=== PATIENT | female | born 1990 | race Caucasian/White ===

== ENCOUNTER 2018-10-24 01:48 | Observation (INO) | payer BC, MEDICAID, OTHER, SELFPAY ==
[~2018-10-24] VITALS: Ht 165.1 cm; Wt 100.0 kg
[2018-10-24] MEDS ORDERED: ONDANSETRON 2MG/ML, 2ML ONE (02:08)
[2018-10-24] MEDS ORDERED: HYDROmorphone 2 MG/ML, 1ML ONE ×2 (02:08→04:57)
[2018-10-24] MEDS: HYDROmorphone 2 MG/ML, 1ML IVPush PRN ×2 (02:13→05:01)
[2018-10-24] MEDS ORDERED: ONDANSETRON 2MG/ML, 2ML IVPush ONE (02:30)
[2018-10-24] MEDS ORDERED: SODIUM CHLORIDE FLUSH 10ML SYR IVF ONE ×2 (02:30→03:00)
[2018-10-24] MEDS ORDERED: CEFOTETAN PMX 1GM/50ML 50 ML ONE (02:39)
[2018-10-24 02:53] LABS: BASOPHILS # (AUTO) 0.05 x10^3/uL (0-0.1); BASOPHILS % (AUTO) 0 % (0-1); EOSINOPHILS # (AUTO) 0.14 x10^3/uL (0-0.4); EOSINOPHILS % (AUTO) 1 % (1-7); LYMPHOCYTES # (AUTO) 1.73 x10^3/uL (1-3.4); LYMPHOCYTES % (AUTO) 16 % (22-44); MD NO; MEAN CORPUSCULAR HEMOGLOBIN 29.3 pg (27.0-34.8); MEAN CORPUSCULAR HGB CONC 33.7 g/dL (32.4-35.8); MEAN CORPUSCULAR VOLUME 86.9 fL (80-100); MEAN PLATELET VOLUME 8.5 fL (7.4-10.4); MONOCYTES # (AUTO) 0.66 x10^3/uL (0.2-0.8); MONOCYTES % (AUTO) 6 % (2-9); NEUTROPHILS # (AUTO) 8.62 x10^3/uL (1.8-6.8); NEUTROPHILS % (AUTO) 77 % (42-75); PLATELET COUNT 310 x10^3/uL (130-400); RED BLOOD COUNT 4.61 x10^6/uL (3.82-5.3)
[2018-10-24] MEDS ORDERED: CEFOTETAN PMX 1GM/50ML 50 ML IV ONE (03:00)
[2018-10-24] MEDS ORDERED: SODIUM CHLORIDE 0.9% 1,000ML IVBOLUS ONE (03:00)
[2018-10-24 03:06] LABS: ALBUMIN 3.3 g/dL (3.4-5.0); ANION GAP 8 mmol/L (5-15); CALCIUM 8.5 mg/dL (8.5-10.1); CHLORIDE 108 mmol/L (98-107)
[2018-10-24 03:12] LABS: ALANINE AMINOTRANSFERASE 26 U/L (12-78); ALKALINE PHOSPHATASE 66 U/L (45-117); BILIRUBIN,TOTAL 0.4 mg/dL (0.2-1.0); CREATININE 0.77 mg/dL (0.55-1.02); TOTAL PROTEIN 7.4 g/dL (6.4-8.2)
[2018-10-24 04:40] VITALS: BP 144/97
[2018-10-24] MEDS ORDERED: SODIUM CHLORIDE 0.9% 1,000 ML IV ONE (04:49)
[2018-10-24] MEDS ORDERED: ONDANSETRON 2MG/ML, 2ML IVPush PRN ×2 (05:00→11:30)
[2018-10-24] MEDS ORDERED: HYDROmorphone 1 MG/ML, 1ML IVPush PRN (05:00)
[2018-10-24] MEDS ORDERED: SODIUM CHLORIDE FLUSH 10ML SYR IVF PRN (05:00)
[2018-10-24 07:07] VITALS: BP 121/76
[2018-10-24] MEDS ORDERED: SODIUM CHLORIDE 0.9% 1,000 ML IV SCH ×2 (09:00→09:05)
[2018-10-24] MEDS ORDERED: MIDAZOLAM 1 MG/ML, 2ML ONE (09:33)
[2018-10-24] MEDS ORDERED: FENTANYL PF 250 MCG/5ML ONE (09:34)
[2018-10-24 09:49] LABS: MICROSCOPIC AUTO
[2018-10-24 09:51] LABS: CULTURE INDICATED? NO
[2018-10-24] MEDS ORDERED: BUPIVACAINE/PF-EPI 0.5% 1:200K ONE (09:58)
[2018-10-24] MEDS ORDERED: SUGAMMADEX 200 MG/2 ML IVPush ONE (10:17)
[2018-10-24] MEDS ORDERED: FENTANYL PF 100 MCG/2ML IV PRN (11:00)
[2018-10-24] MEDS ORDERED: PROMETHAZINE 25 MG/ML, 1ML IV PRN (11:00)
[2018-10-24] MEDS ORDERED: HYDROmorphone 2 MG/ML, 1ML IVPush PRN (11:00)
[2018-10-24] MEDS ORDERED: hydrALAzine 20 MG/ML, 1ML IV PRN (11:00)
[2018-10-24] MEDS ORDERED: MEPERIDINE/PF 25MG/0.5ML IVPush PRN (11:00)
[2018-10-24] MEDS ORDERED: LABETALOL 5MG/ML, 20ML IV PRN (11:00)
[2018-10-24] MEDS ORDERED: ACETAMINOPHEN 325 MG TABLET PO PRN (11:00)
[2018-10-24] MEDS ORDERED: ALBUTEROL SULFATE 2.5 MG/3 ML NPPB PRN (11:00)
[2018-10-24] MEDS ORDERED: LORazepam 2 MG/ML, 1ML IVPush PRN (11:00)
[2018-10-24] MEDS ORDERED: OXYcodone 5 MG/5 ML ORAL.SOL UDC PO PRN ×2 (11:00→11:30)
[2018-10-24] MEDS ORDERED: MEPERIDINE/PF 50 MG/ML ONE (11:17)
[2018-10-24] MEDS ORDERED: LACTATED RINGERS 1,000 ML IV SCH (11:29)
[2018-10-24] MEDS ORDERED: morphine SULFATE 10 MG/ML, 1ML IVPush PRN (11:30)
[2018-10-24 14:07] VITALS: BP 112/75
[2018-10-24] MEDS ORDERED: KETOROLAC 30 MG/1 ML ONE (16:01)
[2018-10-24] MEDS ORDERED: CEFAZOLIN 1,000 MG ONE (16:01)
[2018-10-24] MEDS ORDERED: PROPOFOL 10 MG/ML, 20ML ONE (16:01)
[2018-10-24] MEDS ORDERED: SUCCINYLCHOLINE 20 MG/ML, 10ML ONE (16:01)
[2018-10-24] MEDS ORDERED: ROCURONIUM 10 MG/ML,10ML ONE (16:01)
[2018-10-24] MEDS ORDERED: DEXAMETHASONE 4 MG/ML, 1ML ONE (16:01)
[2018-10-24] MEDS ORDERED: OXYC5CAP2 PO (17:33)
[2018-10-24] MEDS ORDERED: ACET-76 PO (17:35)
[2018-10-24] MEDS ORDERED: IBUP-1222 PO (17:35)
== END 2018-10-24 18:52 | disposition home or self-care (01) ==
LOC: ED 03:28 → EDIP 03:29 → INTOOBSV 03:29 → ED 03:34 → 4NOR 04:15
PROVIDERS: ADMIT Surgery; ATTEND Surgery
DX: K80.00 Calculus of gallbladder with acute cholecystitis without obstruction (principal); F17.210 Nicotine dependence, cigarettes, uncomplicated; R11.2 Nausea with vomiting, unspecified
CPT/HCPCS: 36415; 47562; 76700; 80053; 81001; 83690; 84703; 85025; 88304; 96361; 96365; 96375; 96376; 99284; G0378; J0330; J0690; J1100; J1170; J1885; J2175; J2250; J2405; J2704; J3010; J3490; J7030

== ENCOUNTER 2019-10-10 19:37 | Emergency (ER) | payer MEDICAID ==
[~2019-10-10] VITALS: Ht 165.1 cm; Wt 110.9 kg
[~2019-10-10 19:37] MED LIST: ACET-76 PO; IBUP-1222 PO; OXYC5CAP2 PO
[2019-10-10 19:43] VITALS: BP 172/103
[2019-10-10] MEDS ORDERED: LIDOCAINE-MPF 1%, 5ML INFIL ONE (20:00)
[2019-10-10] MEDS ORDERED: LIDOCAINE-MPF 1%, 5ML ONE (20:05)
--- NOTE | 2019-10-10 20:11 | NUR ---
PT C/O REDNESS TO UPPER LEFT THIGH X3 DAYS. SITE IS RED AND WARM TO TOUCH. I&D SET UP FOR PROVIDER. LIDOCAINE PULLED FOR PROVIDER USE.
--- NOTE | 2019-10-10 21:00 | NUR ---
WOUND SITE DRESSED WITH CLEAN DRESSING. PT AWARE TO RETURN FOR RECHECK IN TWO DAYS.
== END 2019-10-10 21:02 | disposition home or self-care (01) ==
LOC: ED 20:45
DX: L02.416 Cutaneous abscess of left lower limb (principal); Z90.49 Acquired absence of other specified parts of digestive tract; Z98.51 Tubal ligation status; Z87.19 Personal history of other diseases of the digestive system
CPT/HCPCS: 10060; 99283

== ENCOUNTER 2019-12-18 20:00 | Emergency (ER) | payer MEDICAID ==
[~2019-12-18] VITALS: Ht 165.1 cm; Wt 111.0 kg
[2019-12-18 20:13] VITALS: BP 145/95
--- NOTE | 2019-12-18 20:23 | NUR ---
PT HERE WITH LEFT WRIST PAIN AFTER SLAMMING IT INTO A DOOR. STATES INCREASED PAIN AND SWELLING.
--- NOTE | 2019-12-18 21:19 | NUR ---
Patient/Caregiver given discharge instructions and they have confirmed that they understand the instructions. Patient ambulatory with steady gait.
== END 2019-12-18 21:30 | disposition home or self-care (01) ==
LOC: ED 21:00
DX: S63.522A Sprain of radiocarpal joint of left wrist, initial encounter (principal); S60.212A Contusion of left wrist, initial encounter; Z90.49 Acquired absence of other specified parts of digestive tract; X58.XXXA Exposure to other specified factors, initial encounter; Y93.89 Activity, other specified; Y92.009 Unspecified place in unspecified non-institutional (private) residence as the place of occurrence of the external cause; Y99.8 Other external cause status
CPT/HCPCS: 29125; 99283

== ENCOUNTER 2019-12-22 08:54 | Emergency (ER) | payer MEDICAID ==
[~2019-12-22] VITALS: Ht 162.6 cm; Wt 111.1 kg
[2019-12-22 09:03] VITALS: BP 164/95
--- NOTE | 2019-12-22 09:40 | NUR ---
LEFT WRIST ERYTHEMA. PT STATES PUS COMING OUT OF WOUND
[2019-12-22] MEDS ORDERED: LIDOCAINE 1%, 10ML INFIL ONE (10:30)
[2019-12-22] MEDS ORDERED: LIDOCAINE-MPF 1%, 5ML ONE (10:41)
--- NOTE | 2019-12-22 10:48 | NUR ---
PROVIDED LIDO TO MD AND I&D SET UP IN ROOM
--- NOTE | 2019-12-22 11:57 | NUR ---
WOUND LEFT WRIST DRESSED WITH NON ADHESIVE DRESSING AND PT GIVEN DISCHARGE INSTRUCTIONS.
== END 2019-12-22 11:59 | disposition home or self-care (01) ==
LOC: ED 11:09
DX: L03.114 Cellulitis of left upper limb (principal); F17.200 Nicotine dependence, unspecified, uncomplicated; Z90.49 Acquired absence of other specified parts of digestive tract; Z98.51 Tubal ligation status
CPT/HCPCS: 10060; 99283